=== PATIENT | female | born 1990 | race Caucasian/White ===

== ENCOUNTER 2018-03-12 23:29 | Emergency (ER) | payer OTHER ==
[~2018-03-12] VITALS: Ht 165.1 cm; Wt 68.0 kg
[2018-03-13 02:44] VITALS: BP 111/59
== END 2018-03-13 02:45 | disposition home or self-care (01) ==
LOC: ER 23:29
DX: S06.0X0A Concussion without loss of consciousness, initial encounter (principal); R41.3 Other amnesia; W19.XXXA Unspecified fall, initial encounter; Y93.89 Activity, other specified; Y92.89 Other specified places as the place of occurrence of the external cause; Y99.8 Other external cause status